=== PATIENT | female | born 1985 | race Caucasian/White ===

== ENCOUNTER 2024-09-06 00:30 | Day surgery (SDC) | payer OTHER, SELFPAY ==
[2024-08-30 10:41] VITALS: BMI 23.0
--- NOTE | 2024-08-30 10:49 | PC.NURSE ---
Report to the Outpatient Waiting Room, entrance under the green pavilion located off [facility], at time _0600_ on date _[phone]_. Planned Procedure Time: _0730_.? Time changes happen often and if your time is changed the preop area will call you the afternoon before. - You and your visitor will be asked to self-screen and do not enter if you have any COVID symptoms. Please call surgeon if you need to reschedule. - A mask is optional within the hospital at this time. Patients may have clear liquids (water, carbonated beverages, clear teas, apple juice) until 3 hours prior to surgery with a maximum of 20 ounces. - No food from midnight until time of surgery and no smoking, or chewing tobacco (or any form of nicotine). No chewing gum, candy or mints. Take only the following medications with a SIP of water on the morning of surgery: ___None____ DO NOT STOP ANY OF YOUR OTHER PRESCRIPTION MEDICATIONS PRIOR TO SURGERY EXCEPT THE FOLLOWING Hold all vitamins and supplements for 3 days per anesthesiologist. Medications to discontinue per physician Date to take last dose Please no make-up, nail yakut, hairspray, perfume, deodorant, or body powder the day of surgery.? No jewelry (including any body piercings) or valuables the day of surgery, leave them at home.? Please take a shower or bath the night before, or the morning of, surgery with an antibacterial soap.? Wear comfortable, loose fitting clothing.? - Jewelry must be removed prior to entering the operating room.? Rings and piercings that are not removed may be cut off. - The hospital will not accept responsibility for valuables.? - Please leave all valuables, including medications, at home the day of surgery. If you are going home after surgery, a licensed distribution driver must drive you home.? - NO public transportation without another adult if you receive anesthesia. - We recommend that an adult stay with you for 24 hours following discharge. - We also recommend that you do not drive, make important decision, drink alcoholic beverages, or take any drugs that were not prescribed by your health care provider for at least 24 hours after your discharge time. Follow any additional instructions given to you from your surgeon. Telephone instructions given to __Erin___and asked if any additional questions and then verbalized understanding. Patient advised to call surgeon office or pre surgery nurse liaison [phone] if any additional questions.
[2024-09-06] VITALS (10 sets, daily range): BP systolic 95–111; BP diastolic 45–70; PULSE 71–94; RESP 12–20; TEMP 36.6–36.7; O2SAT 99–100; BMI 24.4
--- OUTSIDE RECORDS SUMMARY | 2024-09-06 00:32 | XMS_ITS | Referral Summary ---
Author Organization [facility] Medical Office Building B Address [address] [place] [address] Care Team Providers Care Die Filer Name Role Phone Mary De Oliveira HAND SANDER Primary Care Provider [phone] Encounters Date Type Department Care Team Description 08/13/2024 9:30 AM CDT Office Visit [address] [address] Mary De Oliveira NP BMI 23.0-23.9, adult (Primary Dx); Positive VIGNESH (antinuclear antibody) 07/18/[address] [address] Mary De Oliveira NP Med Refill JANA from Last 3 Months Allergies No known active allergies Medications meloxicam (MOBIC) 15 mg tablet Take 1 tablet (15 mg total) by mouth daily with breakfast Take 1 daily with food 30 tablet 4 Active semaglutide (Wegovy) 0.25 mg/0.5 mL auto-injectorIn dications:BMI 23.0-23.9, adult Inject 0.25 mg under the skin every 7 days 3 mL 2 5 Active semaglutide (Wegovy) 0.25 mg/0.5 mL auto-injectorIn dications:Overw eight (BMI 25.0-29.9) INJECT 0.25 MG UNDER THE SKIN EVERY 7 DAYS. 2 mL 5 08/14/19 25 Discontinu ed(Reorder ) Active Problems Problem Noted Date Diagnosed Date Overweight (BMI 25.0-29.9) 04/12/2024 Assessment & Plan (08/13/2024 10:15 AM CDT): Improving w/ low dose wegovy w/ noted early satiety, less snacking amongst Interim 10 lb or 6.9% wt loss/4 months w/ subsequent less polyarthralgia, irritability as well. Would like to cont with use w/ wt loss goal of 128-130slbs (hopeful 5lbs more loss) -amendable given cnt higher protein diet & strength training regimen Agreeable cnt w/ maintenance w/ gradual dosage extension to 8-10 days as tolerable Hx HLD- to consider GLP-1 metabolic benefits towards wt loss, CVD risk reduction Aware of reportable concerns warranting update RTC 3 months Assessment & Plan (04/12/2024 3:13 PM RETAIL STORE ASSISTANT): Marginal wt increase w/ optimized lifestyle habits Pertinent labs UTD & WNL w/o reported features of other etiologies to c/w mild sustained wt gain Not entirely certain of desire to take any RX for wt loss latoya not joint terminal attack controller but more as a boost to just metabolism given optimized lifestyle habits, lack of other etiologies c/w marginal 5-10% body mass retention Long discussion w/ her regarding RX therapies specific to her PMHx, goals, barriers, etc Defer use of compound GLP1 discussing concerns w/ inconsistent dosages, S/Es though agreeable to trial low dose wegovy to update if covered and insurance alternatives arrange f/u Update in the week Urticaria due to heat 10/30/2023 Assessment & Plan (10/30/2023 2:22 PM CDT): Recurrent diffuse w/ heat exposure ongoing for yrs mostly indured (?SLE); uncertain underlining etiology explain Successfully suppressed w/ daily antihsitamine-cnt as prior along with avoidance Referral commercial appraiser eval any mast cell or Ig etiology explain Rheum referral pending for rheum systemic etiology given + vignesh hx Intermittent palpitations 10/28/2022 Assessment & Plan (10/30/2023 1:51 PM CDT): Remains modestly asymptomatic/infreq since prior OV Update w/ any regressive sxs Assessment & Plan (10/28/2022 3:13 PM CDT): Fleeting, episodic palpations of recent wks; unknown etiology Exam benign, reassuring- deferred EKG Update pertinent labs to rule out anemia, thyroid disease or electrolyte related etiology Counseled of common triggers to avoid, preventatives, red flags to report via education handout Low threshold to consider Holter or TTE if labs normal, sx persist amongst avoidance efforts Udpate w/ labs & in the month on overall status Contact with and (suspected) exposure to rabies 12/28/2021 Raynaud's disease 10/28/2021 Assessment & Plan (10/30/2023 1:50 PM CDT): Clinically asymptomatic, infreq Prior dx in Raynaud's 2019-atypical presentation vasospasms(+ VIGNESH suspecting possible cSS- fu) per serology Continue trigger avoidance in the interim Assessment & Plan (10/28/2021 3:14 PM CDT): Hx clinically diagnosed Raynaud's 2019-atypical presentation basal spasms Recent labs + VIGNESH suspecting possible cSS- further serology to rule out systemic inflammatory etiology Continue trigger avoidance in the interim Positive VIGNESH (antinuclear antibody) 10/28/2021 Assessment & Plan (10/30/2023 2:16 PM CDT): Prior + VIGNESH in early (titer 1:80 speckled) w/ unrevealing rheum panel oct thought to be possibly raynaud's related Mention urticaria atypical of SLE etiology but to consider uncertain of utility repeat rheum testing-comfortable deferring until connected w/ specialist Rheum referral pending- reisntating today to arrange OV & discuss repeat testing further Assessment & Plan (10/28/2022 3:16 PM CDT): Uncertain etiology, poss Raynaud's dx related Hx prior + VIGNESH in early speckled 1:80 Repeat 11/04 rheum panel unrevealing Exam benign w/o subjective mention of arthralgias, connective tissue dx explain Fleeting palpitations seemingly unrelated Though Raynaud's remains well controlled, would feel reassured if connecting with nursery attendant for second opinion Will connect with nursery attendant in upcoming mos and discuss further Assessment & Plan (10/28/2021 3:16 PM CDT): Serial + VIGNESH 1:16 (speckled) in 2019 & 04/2021 Clinical exam benign; no remarkable subjective mention of arthralgia, rashes, CP complaints Surrounding testing for further diagnosis, evaluation Referral to [facility] rheum pending labs Update in the week Ocular migraine 10/28/2021 Assessment & Plan (10/30/2023 1:46 PM CDT): Remains infreq since last PHE Cnt supportive care preventative measures, OTC abortive therapies Update w/ increase frequency Assessment & Plan (10/28/2022 3:17 PM CDT): Manageable over the last year;1 episode/year Cnt w/ preventative maintenance modestly through supportives Update w/ increase occurrence, progression Assessment & Plan (10/28/2021 2:11 PM CDT): Hx ocular migraines. Prior seen by neurology Sparing episodes last year-2 at most. Triggered by dehydration, fasting, high intensity/HIIT exercises Will cont w/ avoidance IUD (intrauterine device) in place 10/28/2021 Resolved Problems Problem Noted Date Diagnosed Date Resolved Date Need for Tdap vaccination 10/30/2023 Post concussion syndrome 03/02/202308/2023 Assessment & Plan (03/02/2023 3:30 PM RETAIL STORE ASSISTANT): Exam c/w mild concussion d/t mechanical or contrecoup TBI Various reported sxs align with TBI, neurocog intact w/o direct injury or overt findings per exam-defer neuroimaging tentative to self resolution with supportive care over next few weeks Counseled of condition including typical timeframe to expect resolution, supportive care & p.r.n. 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 2023 Assessment & Plan (10/30/2023 2:38 PM CDT): Chronic, atraumatic & resurfacing months after receiving steroid injection No distal neuropathy reported or noted on exam Baseline xray today r/o avulsion fx, significant OA or spurring Referral to hand specialist for further evaluation Counseled of bracing, supportive care measures towards acute analgesic relief, bracing, activity modifications, HEP interim Assessment & Plan (10/28/2022 3:18 PM CDT): Modestly improving with dry needling, manager medicare marketing Counseled of epicondylitis exercises, bracing, topical analgesics expectations in overall resolution or reportable symptoms Update with persistence to consider need for EMG, ortho referral RTC p.r.n. Annual physical exam 10/28/2021 024 Assessment & Plan (10/30/2023 9:52 AM CDT): Annual physical exam with wellness labs ordered today in clinic. Discussed recommended vaccinations per current guidelines- contraindications, concerns regarding vaccinations reviewed and/or updated in EMR to revisit status next CPE if overdue. Further follow-up pending results of labs. RTC in 1 year for next annual exam or in the interim prn. Assessment & Plan (10/28/2022 1:43 PM CDT): Annual physical exam with wellness labs ordered today in clinic. Discussed recommended vaccinations per current guidelines- contraindications, concerns regarding vaccinations reviewed and/or updated in EMR to revisit status next CPE if overdue. Further follow-up pending results of labs. RTC in 1 year for next annual exam or in the interim prn. Assessment & Plan (10/28/2021 2:17 PM CDT): Annual physical exam with wellness labs ordered today in clinic. UTD on all vaccinations aside per guidelines- encouraged new bivalent CV19 booster- update once received. Further follow-up pending results of labs. RTC in 1 year for next annual exam or in the interim prn. Chronic pain of left knee 10/28/2021 Assessment & Plan (10/30/2023 1:48 PM CDT): Chronic, ongoing S/p L knee closed manipulation last week after prior surgical repair in june hopeful this will yield more pain relief sustained from surgery Formal PT following recovery as well Cnt recommendations per ortho Followed by orthoDr.Stahle Assessment & Plan (10/28/2021 3:17 PM CDT): Chronic, progressive Hx of traumatic ligament injury w/ subsequent repairs, revisions & pain progressing as of recent. Seeing ortho, receiving ESTEVEZ injections. Recent xray noted mild OA, little to no cartilage. Followed by Dr.Stahle darren (spontaneous vaginal delivery) 03/17/2015 2023 Immunizations Immunization Administration Dates Next Due DTP 10/05/1990, 1,07/12/1985,04/09,01/30/1985 Hep B, Adolescent or Pediatric 04/05/1999,1998,08/24/1998 Influenza, Quadrivalent, Jami l Culture-based MDCK, Preservative Free, Antibiotic Free, Intramuscular 11/19/2019,11/12/2017 Influenza, Quadrivalent, Spl it, Preservative Free, Intramuscular 11/26/2020 Influenza, Trivalent, IM (MDV) 12/15/2014 MMR 10/05/1990,06/06/1986 Meningococcal MCV4P (Menactra) 12/08/2008 OPV 10/05/1990, 9,07/12/1985,04/09,01/31/1985 Rabies Immune Globulin 12/28/2021 Rabies Vaccine 01/11/2022, 2,12/31/2021,12/28 Td, adsorbed 09/13/1995 Tdap 10/30/2023,09/13/2012 Social History Tobacco Use Types Packs/Day Years Used Date Smoking Tobacco: Never Passive Smoke Exposure: Never Smokeless Tobacco: Never Tobacco Cessation:Counseling Given: Not Answered AUDIT-C Answer Date Recorded Q1: How often do you have a drink containing alc ohol? 2-3 times a week 2023 Average Number of Drinks Not on file 024 Frequency of Binge Drinking Not on file 08/2023 PHQ-2 Answer Date Recorded PHQ-2 Total Score (If total score is 3 or more points, staff should administer the PHQ-9) 0 10/30/2023 Comments Unknown Sex and Gender Information Value Date Recorded Sex Assigned at Not on file Legal Sex Female 8:05 PM RETAIL STORE ASSISTANT Gender Identity Female 05/06/2021 2:43 PM CDT Sexual Orientation Not on file Last Filed Vital Signs Vital Sign Reading Time Taken Comments Blood Pressure 124/76 08/13/2024 9:33 AM CDT Pulse 76 08/13/2024 9:33 AM CDT Temperature 36.6 C (97.9 F) 2023 10:15 AM RETAIL STORE ASSISTANT Respiratory Rate 16 01/11/2022 4:10 PM RETAIL STORE ASSISTANT Oxygen Saturation 99% 08/13/2024 9:33 AM CDT Inhaled Oxygen Concentration - - Weight 60.8 kg (134 lb) 08/13/2024 9:33 AM CDT Height 160 cm (5' 3) 08/13/2024 9:33 AM CDT Body Mass Index 23.74 08/13/2024 9:33 AM CDT Plan of Treatment Not on file Procedures Procedure Name Priority Date/Time Associated Diagnosis Comments HEPATITIS C ANTIBODY Routine 11/02/2023 9:11 AM CDT Encounter for hepatitis C screening test for low risk patient from Last 3 Months or Most Recently Relevant to Health Maintenance Results * Hepatitis C antibody Blood (11/02/2023 9:11 AM CDT) Hep C Ab NON-REACTI VE NON-REACT JUAN ALBERTO [facility] Comment: HCV antibody was non-reactive. There is no laboratory evidence of HCV infection. In most cases, no further action is required. However, if recent HCV exposure is suspected, a test for HCV RNA (test code 08496) is suggested. For additional information please refer to http://education.[employer].[facility]/faq/XOT59r7 (This link is being provided for informational/ educational purposes only.) Blood 11/02/2023 9:11 AM CDT 11/02/2023 9:11 AM CDT Narrative [facility] - 11/04/2023 12:11 AM CDT FASTING:NO FASTING: NO Mary De Oliveira NP LAB MICROBIOLOGY - GENERAL O RDERABLES Final Result [facility] [address] [place] [address] from Last 3 Months or Most Recently Relevant to Health Maintenance Insurance [facility] PPO [facility] PPO Care Teams Die Filer Relationship Specialty Start Date End Date Mary De Oliveira NP [facility] [address] Marta SANDOVAL [address] [place] [id number] PCP - General Internal Medicine 10/28/21
--- OUTSIDE RECORDS SUMMARY | 2024-09-06 00:32 | XMS_ITS | Clinical Summary ---
Author Organization [facility] Medical Office Building B Address [address] [place] [address] Care Team Providers Care Brilliandeer Lopper Name Role Phone Mary De Oliveira NP Primary Care Provider [phone] Allergies No known active allergies Medications meloxicam [...] months Assessment & Plan (04/12/2024 3:13 PM DIRECTOR OF MARKET ANALYSIS): Marginal wt increase w/ optimized lifestyle habits Pertinent labs UTD & WNL w/o reported features of other etiologies to c/w mild sustained wt gain Not entirely certain of desire to take any RX for wt loss latoya not halfway but more as a boost to just [...] antihsitamine-cnt as prior along with avoidance Referral drawbench operator helper eval any mast cell or Ig etiology explain Rheum referral pending for rheum systemic etiology given + margot hx Intermittent palpitations 10/28/2022 Assessment & Plan [...] Prior dx in Raynaud's 2019-atypical presentation vasospasms(+ MARGOT suspecting possible cSS- fu) per serology Continue trigger avoidance in the interim Assessment & Plan (10/28/2021 3:14 PM CDT): Hx clinically diagnosed Raynaud's 2019-atypical presentation basal spasms Recent labs + MARGOT suspecting possible cSS- further serology to rule out systemic inflammatory etiology Continue trigger avoidance in the interim Positive MARGOT (antinuclear antibody) 10/28/2021 Assessment & Plan (10/30/2023 2:16 PM CDT): Prior + MARGOT in early (titer 1:80 speckled) w/ unrevealing [...] poss Raynaud's dx related Hx prior + MARGOT in speckled 1:80 Repeat 11/04 rheum panel unrevealing Exam benign w/o subjective mention of arthralgias, connective tissue dx explain Fleeting palpitations seemingly unrelated Though Raynaud's remains well controlled, would feel reassured if connecting with batch or continuous still operator for second opinion Will connect with batch or continuous still operator in upcoming mos and discuss further Assessment & Plan (10/28/2021 3:16 PM CDT): Serial + MARGOT 1:16 (speckled) in 2019 & 04/2021 Clinical exam benign; no remarkable subjective mention of arthralgia, rashes, CP complaints Surrounding testing for further diagnosis, evaluation Referral to [facility] rheum pending labs Update in the week [...] 03/02/202308/2023 Assessment & Plan (03/02/2023 3:30 PM DIRECTOR OF MARKET ANALYSIS): Exam c/w mild concussion d/t mechanical or [...] PM CDT): Modestly improving with dry needling, child care nurse Counseled of epicondylitis exercises, bracing, topical analgesics [...] OA, little to no cartilage. Followed by ortho, Dr.Stahle LANE (spontaneous vaginal delivery) 03/17/2015 2023 Encounters Date Type Department Care Team Description 08/13/2024 9:30 AM CDT Office Visit [address] [address] Mary De Oliveira, MEDICAL BILLING REPRESENTATIVE BMI 23.0-23.9, adult (Primary Dx); Positive MARGOT (antinuclear antibody) 07/18/[address] [address] Mary De Oliveira, MEDICAL BILLING REPRESENTATIVE Med Refill JANA from Last 3 Months Immunizations Immunization Administration Dates Next Due DTP 10/05/1990, 1,07/12/1985,04/09,01/30/1985 Hep B, Adolescent or Pediatric 04/05/1999,1998,08/24/1998 Influenza, Quadrivalent, Jami l Culture-based MDCK, Preservative Free, Antibiotic Free, Intramuscular 11/19/2019,11/12/2017 Influenza, Quadrivalent, Spl it, Preservative Free, Intramuscular 11/26/2020 Influenza, Trivalent, IM (MDV) 12/15/2014 MMR 10/05/1990,06/06/1986 Meningococcal MCV4P (Menactra) 12/08/2008 OPV 10/05/1990, 9,07/12/1985,04/09,01/31/1985 Rabies Immune Globulin 12/28/2021 Rabies Vaccine 01/11/2022, 2,12/31/2021,12/28 Td, adsorbed 09/13/1995 Tdap 10/30/2023,09/13/2012 Surgical History Surgery Date Site/Laterality Comments KNEE ARTHROSCOPY W/ LATERAL RELEASE 2004, , , BREAST SURGERY August 2017 LASIK August 2020 Medical History Medical History Date Comments Migraines 2019 Autoimmune disease 2020 Family History Medical History Relation Name Comments Hypertension Father Loco Fowler Heart attack Father's Brother 1 Patrick Mathewsron Heart attack Father's Brother 2 Darin Mathewsron Breast cancer Father's Sister 1 Lindsey Wipperman Cancer Father's Sister 1 Lindsey Wipperman Cancer Father's Sister 2 Danielle Abhay Squamous cell carcinoma Father's Sister 2 Danielle Abhay Heart attack Father's Sister 3 Elizabeth Snell Ellis Heart disease Father's Sister 3 Elizabeth Snell Ellis Cancer Paternal Grandfather Carlito Fowler Lung cancer Paternal Grandfather Carlito Fowler Stroke Paternal Grandmother Alida Fowler Colon cancer Neg Hx Diabetes Neg Hx Diabetes type II Neg Hx Ovarian cancer Neg Hx Relation Name Status Comments Father Loco Fowler Father's Brother 1 Patrick Mathewsron Father's Brother 2 Darin Malcolm Father's Sister 1 Lindsey Barcenaspperman Father's Sister 2 Danielle Abhay Father's Sister 3 Elizabeth Ellis Paternal Grandfather Carlito Fowler Paternal Grandmother Alida Fowler Social History Tobacco Use Types Packs/Day Years [...] on file Legal Sex Female 8:05 PM DIRECTOR OF MARKET ANALYSIS Gender Identity Female 05/06/2021 2:43 PM CDT Sexual Orientation Not on file Obstetrics History Para Term AB IAB SAB Ectopic Multiple Livin g Live Births 2 2 1 1 2 2 Date Outcome GA Total Labor Labor/2nd/3rd Weight Sex Type Anes PTL Amber A1 A5 Name Clin 013 36w 0d 10h 15m/2h 06m/ M Livin g WALDR ON,NADINE Y1ERI N Delivery Location[facility] 016 Term 39w 3d 5h 05m 4h 00m/0h 58m/0h 07m 3.062 kg (6 lb 12 oz) F Vag-S pont Epidur al Cliff g 8 9 Yasmany Archer MD Complications:None Delivery Location:[facility] Last Filed Vital Signs Vital Sign Reading Time Taken Comments Blood Pressure 124/76 08/13/2024 9:33 AM CDT Pulse 76 08/13/2024 9:33 AM CDT Temperature 36.6 C (97.9 F) 2023 10:15 AM DIRECTOR OF MARKET ANALYSIS Respiratory Rate 16 01/11/2022 4:10 PM DIRECTOR OF MARKET ANALYSIS Oxygen Saturation 99% 08/13/2024 9:33 AM CDT Inhaled Oxygen Concentration - - Weight 60.8 kg (134 lb) 08/13/2024 9:33 AM CDT Height 160 cm (5' 3) 08/13/2024 9:33 AM CDT Body Mass Index 23.74 08/13/2024 9:33 AM CDT Plan of Treatment Health Maintenance Due Date Last Done Comments Cervical Cancer Screening 1984 Varicella Vaccines (1 of 2 - 13+ 2-dose series) 1997 HPV Vaccines (1 - 3-dose SCDM series) 12/22/2011 Covid-19 Vaccine ( season) 2023 05/06/2020, 04/15/2020 Influenza Vaccine (#1) 2024 , 11/19/2019, 11/12/2017, Additional history exists Depression Screening 10/29/2024 10/30/2023, 10/28/2022, 10/28/2021 Regular Well Visit/Exam 18-64 10/29/2024 10/30/2023, 10/28/2022, 10/28/2021 DTaP/Tdap/Td Vaccine (8 - Td or Tdap) 10/29/2033 10/30/2023, 09/13/2012, 09/13/1995, Additional history exists Hepatitis B Screening Completed 11/02/2023 , 04/05/1999, 11/02/1998, Additional history exists Hepatitis C Screening Completed 11/02/2023 Pneumococcal vaccine <65 Aged Out No longer eligible based on patient's age to complete this topic Procedures Procedure Name Priority Date/Time Associated Diagnosis Comments HEPATITIS C ANTIBODY Routine 11/02/2023 9:11 AM CDT Encounter for hepatitis C screening test for low risk patient from Last 3 Months or Most Recently Relevant to Health Maintenance Results * Hepatitis C antibody Blood (11/02/2023 9:11 AM CDT) Hep C Ab NON-REACTI VE NON-REACT JUAN ALBERTO [facility] Comment: HCV antibody was non-reactive. There is no laboratory evidence of HCV infection. In most cases, no further action is required. However, if recent HCV exposure is suspected, a test for HCV RNA (test code 92974) is suggested. For additional information please refer to http://education.[employer]/faq/DJK46i4 (This link is being provided for informational/ educational purposes only.) Blood 11/02/2023 9:11 AM CDT 11/02/2023 9:11 AM CDT Narrative [facility] - 11/04/2023 12:11 AM CDT FASTING:NO FASTING: NO Mary De Oliveira NP LAB MICROBIOLOGY - GENERAL O RDERABLES Final Result [facility] [address] [place] [address] from Last 3 Months or Most Recently Relevant to Health Maintenance Insurance [facility] PPO Care Teams Brilliandeer Lopper Relationship Specialty Start Date End Date Mary De Oliveira NP [facility] [address] Marta SANDOVAL [address] [place] [id number] PCP - General Internal Medicine 10/28/21
--- OUTSIDE RECORDS SUMMARY | 2024-09-06 00:32 | XMS_ITS | Clinical Summary ---
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 Gender Identity Not on file Sexual Orientation Not on file Plan of Treatment Health Maintenance Due Date Last Done Comments Hepatitis C Virus (HCV) Screening 1984 TdaP Immunization 1984 Human Papillomavirus (HPV) Immunization (1 - 3-dose series) 12/22/1999 Hepatitis B Immunization (1 of 3 - 19+ 3-dose series) 12/22/2003 Pap Smear 2005 Cervical Cancer Screening (CCS) 2014 HPV/Cotest 2014 SARS-COV-2 Immunization (2023- season) 2023 Influenza Immunization (#1) 10/14/202407/2019, 11/12/2017 Respiratory Syncytial Virus (RSV) Immunization (Adult) (1 - 1-dose 75+ series) 12/22/2059 Meningococcal Immunization (ACWY) Aged Out No longer eligible b ased on patient's age to complete this topic Pneumococcal Immunization Combined Aged Out No longer eligible b ased on patient's age to complete this topic Rotavirus Immunization Aged Out No lo nger eligible based on patient's age to complete this topic
--- OUTSIDE RECORDS SUMMARY | 2024-09-06 00:32 | XMS_ITS | Clinical Summary ---
Author Organization [facility] Address [address] [place] [address] Care Team Providers Care Manager Transit Name Role Phone Angelo Mejia MD Primary Care Provider Allergies No known active allergies Medications multi vitamin/minerals tablet Take 1 tablet by mouth daily. Active Ascorbic Acid (VITAMIN C) 250 MG Chew Tab Chew 1 tablet by mouth 3 (three) times daily. Active Immunizations Immunization Administration Dates Next Due PFIZER COVID-19 (ORIGINAL FO RMULATION, PURPLE CAP) mRNA, LNP-S, PF, 30 MCG/0.3 ML DOSE 05/06/2020,04/15/2020 Family History Medical History Relation Comments Hypertension Father None Mother Relation Status Comments Father Alive Mother Alive Social History Tobacco Use Types Packs/Day Years Used Date Smoking Tobacco: Never Smokeless Tobacco: Never Alcohol Use Standard Drinks/Week Comments Yes 0 (1 standard drink = 0.6 oz pur e alcohol) SOCIALLY Comments No Sex and Gender Information Value Date Recorded Sex Assigned at Not on file Legal Sex Female 1:58 PM CDT Gender Identity Not on file Sexual Orientation Not on file Last Filed Vital Signs Vital Sign Reading Time Taken Comments Blood Pressure 108/60 01/13/2021 3: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 Pulse 78 01/13/2021 3: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 Temperature 36.7 C (98 F) 01/13/2021 3: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 Respiratory Rate 20 01/13/2021 3: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 Oxygen Saturation 100% 01/13/2021 3: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 Inhaled Oxygen Concentration - - Weight 62.1 kg (137 lb) 01/13/2021 3: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 Height 160 cm (5' 3) 01/13/2021 3: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 Body Mass Index 24.27 01/13/2021 3: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 Plan of Treatment Health Maintenance Due Date Last Done Comments Annual Physical 12/22/1987 Hepatitis C 2002 Hepatitis B Vaccines (1 of 3 - 19+ 3-dose series) 12/22/2003 HPV Vaccines (1 - 3-dose SCDM series) 12/22/2011 DTaP, Tdap and Td Vaccines (2 - Td or Tdap) 09/13/2022 09/13/2012, 10/05/1990, 03/11/1990, Additional history exists Cervical Cancer Screening Pap Smear (Age 30 to 64) Every 3 Years 06/03/2023 06/02/2020 COVID-19 Vaccine ( season) 2023 05/06/2020, 04/15/2020 Cervical Cancer Screening Pap with HPV Testing (Age 30 to 64) Every 5 Years 06/02/2025 06/02/2020 Cervical Cancer Screening with HPV 06/02/2025 Meningococcal B Vaccine Aged Out No l onger eligible based on patient's age to complete this topic Meningococcal Vaccine Aged Out No zoila fatou eligible based on patient's age to complete this topic Pneumococcal Vaccine: Pediatrics (0 to 5 Years) and At-Risk Patients (6 to 49 Years) Aged Out No longer eligible based on patient's age to complete this topic RSV Immunizations Under 20 Months Aged Out No longer eligible based on patient's age to complete this topic Insurance Care Teams Manager Transit Relationship Specialty Start Date End Date Angelo Mejia MD [address] [address] PCP - General INTERNAL MEDICINE 01/04/19
--- OUTSIDE RECORDS SUMMARY | 2024-09-06 00:32 | XMS_ITS | Continuity of Care Document ---
Author Organization [facility] Address [address] [place] [address] [place] [phone] Phone Care Team Providers Care Auto Parts Salesperson Name Role Phone Valeriy PT, DPT, Angelo Ferrara Unavaila ble Procedures Procedure Date Therapeutic Activities Neuromuscular Re-Ed Therapeutic Exercise Manual Therapy Therapeutic Activities Neuromuscular Re-Ed Therapeutic Exercise Manual Therapy Therapeutic Activities Neuromuscular Re-Ed Manual Therapy Therapeutic Exercise Therapeutic Activities Neuromuscular Re-Ed Therapeutic Exercise Manual Therapy Therapeutic Activities Therapeutic Exercise Neuromuscular Re-Ed Manual Therapy Therapeutic Activities Neuromuscular Re-Ed Therapeutic Exercise Therapeutic Activities Therapeutic Exercise Neuromuscular Re-Ed Therapeutic Activities Therapeutic Exercise Neuromuscular Re-Ed Therapeutic Activities Therapeutic Exercise Manual Therapy Neuromuscular Re-Ed Neuromuscular Re-Ed Therapeutic Activities Therapeutic Exercise Manual Therapy Therapeutic Activities Therapeutic Exercise Manual Therapy PT Evaluation Low Complexity Therapeutic Activities Neuromuscular Re-Ed Therapeutic Exercise Advance Directives Directive Yes / No Effective Date File Name No Information Encounters Encounter Description Practice Location Reason(s) For Visit Diagnoses Date Provider Providers Copied on Encounter [facility] [address], [id number], tel:[phone] [place] No Information Valeriy Stephens. . [facility] [address], [id number], tel:[phone] [place] No Information [place]. . Referring Provider: James Bran, [address] [place] [address], [facility]. tel:[phone] [place] [address], [id number], tel:[phone] [place] No Information [place]. . Referring Provider: James Bran, [address] [place] [address], [place], [address]. tel:[phone], [id number], tel:[phone] [place] No Information Valeriy Stephens. . Referring Provider: James Bran, [address] [place] [address], [place], [address]. tel:[phone], [id number], tel:[phone] [place] No Information Valeriy Stephens. . Referring Provider: James Bran [address] [place] [address], [place], [address]. tel:[phone] [facility], [address] [facility] [address], [place], [place], [id number], [place] tel:[phone] [place] No Information Valeriy Stephens. . Referring Provider: James Bran, [address] [place] [address], [place], [address]. tel:[phone] [facility] [address] [facility] [address], [place], [place], [id number], [place] tel:[phone] [place] No Information [place]. . Referring Provider: aJmes Bran [address] [place] [address], [place], [address]. tel:[phone] [facility], [address] [place] [address], [place], [place], [id number], tel:[phone] [place] No Information Valeriy Stephens. . Referring Provider: James Bran [address] [place] [address], [place], [address]. tel:[phone] [facility] [address] [place] [address], [place], [place], [id number], tel:[phone] [place] No Information [place]. . Referring Provider: James Bran [address] [place] [address], [place], [address]. tel:[phone] [facility] [address], [place], [place], [id number], [place] tel:[phone] [place] No Information Valeriy Stephens. . Referring Provider: James Bran [address] [place] [address], [place], [address]. tel:[phone] [facility], [address] [facility] [address], [place], [place], [id number], [place] tel:[phone] [place] No Information Valeriy Stephens. . Referring Provider: James Bran, [address] [facility] [address], [place], [address]. tel:[phone] [place] [address], [place], [place], [id number], tel:[phone] [place] No Information [place]. . Referring Provider: James Bran, [address] [facility] [address], [place], [address]. tel:[phone], [place], [place], [id number], tel:[phone] [place] No Information Valeriy Stephens. . Referring Provider: James Bran, [address] [facility] [address], [place], [address]. tel:[phone] Family History Family Member Type Diagnosis Age At Onset No Information Payers Payer name Insurance type Covered democrat ID Authorjihan nance(s) [facility] [id number] Social History Type Description Quantity Date Captured Comments Sex Female Smoking Status No Information Chief Complaint And Reason For Visit No Information Reason For Referral Reason For Referral No Information History Of Present Illness Encounter Date Complaint History Of Prese nt Illness No Information Functional Status Date Functional Assessmen t No Information Instructions Date Instruction Additional Infor mation No Information Assessments Type Assessment Date No Information Patient Care Teams Name Effective Dates (start - stop) Status Members No Information
--- OUTSIDE RECORDS SUMMARY | 2024-09-06 00:32 | XMS_ITS | Clinical Summary ---
Author Organization [facility] Address [address] [place] [address] Phone Care Team Providers Care Mitten Stitcher Name Role Phone [facility], External Provider Primary Care Provider U navailable Allergies No known active allergies Medications fluconazole (DIFLUCAN) 150 mg tablet Take 1 Tablet (150 mg) by mouth daily. 2 Tablet 1 02/24/2022 Active Active Problems Problem Noted Date Diagnosed Date 03/17/15, girl 03/17/2015 Resolved Problems Problem Noted Date Diagnosed Date Resolved Date SROM (0011), GBS-, A+ 03/17/20152015 Mastitis, vanc q12, likely home tomorrow 11/03/2012 03/17/2015 , Boy Elaine 09/23/2012 03/17/2015 PROM 11:45, A+, GBS neg 09/22/2012 02/0 03/2015 Immunizations Immunization Administration Dates Next Due (ADACEL/BOOSTRIX)(10 YR UP) TDAP VACCINE, 0.5ML, IM 09/23/2012 Influenza Seasonal Unspecified Formulation IM Family History Medical History Relation Name Comments Healthy Father Healthy Mother Healthy Sister Relation Name Status Comments Father Mother Sister Social History Tobacco Use Types Packs/Day Years Used Date Smoking Tobacco: Never Smokeless Tobacco: Never Alcohol Use Standard Drinks/Week Comments No 0 (1 standard drink = 0.6 oz pur e alcohol) Comments No Sex and Gender Information Value Date Recorded Sex Assigned at Not on file Legal Sex Female 8:57 AM CDT Gender Identity Not on file Sexual Orientation Not on file Occupation Industry Job Start Date Job End Date Not on file Not on file Not on file Not on file Last Filed Vital Signs Vital Sign Reading Time Taken Comments Blood Pressure 110/66 09/16/2021 10:10 AM CDT Pulse 99 03/19/2015 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 Temperature 36.7 C (98 F) 03/19/2015 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 Respiratory Rate 18 03/19/2015 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 Oxygen Saturation 100% 05/04/2013 12:26 PM CDT Inhaled Oxygen Concentration - - Weight 64 kg (141 lb) 09/16/2021 10:10 AM CDT Height 159.4 cm (5' 2.75) 06/02/2020 2:15 PM CD T Body Mass Index 25.18 06/02/2020 2:15 PM CDT Plan of Treatment Health Maintenance Due Date Last Done Comments HPV VACCINES (1 - 3-dose series) 12/22/1999 HEPATITIS B VACCINES (1 of 3 - 19+ 3-dose series) 12/22/2003 DTAP/TDAP/TD VACCINES (2 - Td or Tdap) 09/23/2022 COVID-19 Vaccine (3 - 2023- season) 2023, 04/15/2020 INFLUENZA VACCINE (#1) 2024 12/15/2014 PAP SMEAR 09/16/2024 09/16/2021, 06/02/2020 CERVICAL CANCER SCREENING 09/16/2026 HPV/Cotest (21-29) 09/16/2026 09/16/2021, 06/02/2020 HPV/Cotest (30-65) 09/16/2026 09/16/2021, 06/02/2020 Procedures Procedure Name Priority Date/Time Associated Diagnosis Comments CERV/VAG CYTO AGE BASED SCREEN PAP Routine 09/16/2021 10:40 AM CDT Encounter for gynecological examination without abnormal finding Screening for cervical cancer Special screening examination for human papillomavirus (HPV) from Last 3 Months or Most Recently Relevant to Health Maintenance Results * CERV/VAG CYTO AGE BASED SCREEN PAP (09/16/2021 10:40 AM CDT) COMMENT (PAP): [facility] Comment: This order for age-based cervical cancer and STI screening follows ACOG guidelines(PB 168, 140, MMF826). See individual assays for performing site location. CLINICAL INFORMATION [facility] Comment:Information not prov ided LAST MENSTRUAL PERIOD [facility] Comment:INFORMATION NOT PROV IDED PREV PAP: [facility] [place] Comment:INFORMATION NOT PROV IDED PREV BX: [facility] [place] Comment:INFORMATION NOT PROV IDED SOURCE [facility] [place] Comment:Endocervix ADEQUACY: [facility] [place] Comment: Satisfactory for evaluation. Endocervical/transformation zone component present. Age and/or menstrual status not provided PAP INTERP [facility] Comment:Negative for intraep ithelial lesion or malignancy. COMMENT (PAP TEST) [facility] Comment: This Pap test has been evaluated with computer assisted technology. FRONT END SPECIALIST: Fabby est [facility] Comment: BKA, CT(ASCP) CT screening location: [place] [address] [place] [address] EXPLANATORY NOTE [facility] [place] Comment: EXPLANATORY NOTE: The Pap is a screening test for cervical cancer. It is not a diagnostic test and is subject to false negative and false positive results. It is most reliable when a satisfactory sample, regularly obtained, is submitted with relevant clinical findings and history, and when the Pap result is evaluated along with historic and current clinical information. HPV E6/E7 Not Detected Not Detected [facility] Comment: Methodology: Molasses Feed Mixer-Mediated Amplification This assay detects E6/E7 viral messenger RNA (mRNA) from 14 high-risk HPV types (16,18,31,33,35,39,45,51,52,56,58,59,66,68). Cervical sources are required for HPV testing. If a vaginal source from a patient who has had a total hysterectomy with removal of cervix was submitted, please contact the testing laboratory for alternative testing options. For additional information, please refer to http://education.HITbills/faq/LXO046f6 (This link if provided for information/ educational purposes only.) Test Performed at: [facility] [address] [place] [place] [address] Arvind Redding D.O., MPH SL Genital SW[facility] OF ENDOCERVIX / Unknown 09/16/2021 10:40 AM CDT 09/16/2021 10:27 PM CDT Иван Ramirez MD PATHOLOGY/CYTOLOGY ORD ERABLES Final Result [facility] [phone] [facility] [address] [place] [address] from Last 3 Months or Most Recently Relevant to Health Maintenance Insurance Advance Directives For more information, please contact: [phone] * Full Code (Latest Code Status on File) Date Activated Date Inactivated Comments 03/17/2015 7:58 AM 03/19/2015 1:27 PM * Full Code Date Activated Date Inactivated Comments 03/17/2015 2:53 AM 03/17/2015 7:58 AM * Full Code Date Activated Date Inactivated Comments 12/31/2014 11:19 AM 12/31/2014 3:54 PM * Full Code Date Activated Date Inactivated Comments 09/23/2012 4:14 AM 09/25/2012 10:00 PM * Full Code Date Activated Date Inactivated Comments 09/22/2012 3:36 PM 09/23/2012 4:14 AM Care Teams Mitten Stitcher Relationship Specialty Start Date End Date [facility], External Provider [address] [place] [address] PCP - General 11/03/12
--- NOTE | 2024-09-06 07:02 | P.PNAN_ITS ---
Anes - Initial Pre Proc Eval Procedure: Operation Date: 09/06/24 07:30 Proposed Procedures p Bilateral Breast Implant Exchange - Zachery Gray MD Date/Time: 09/06/24 07:02 Surgeon: Zachery Gray MD Pre Op Diagnosis: Hx of Breast Aug Patient Data Age: 38 Gender: F Height: 1.6 m Weight: 59 kg Allergies Allergy/AdvReac Type Severity Reaction Status Date / Time No Known Allergies Allergy Verified 09/06/24 07:04 Home Medications ?Medication ?Instructions ?Recorded ?Confirmed ?Type No Home Medications 08/30/24 08/30/24 History Patient hx anesthesia problems: post op nausea/vomiting Family hx anesthesia problems: none Results Review: All pre-operative results and documents have been reviewed as part of the pre- operative evaluation. PMFSH Family History Family History Grandparent Hypertension Social History Social History Smoking status: Never smoker Alcohol intake: current Drinks per week: 5 Living arrangements: with family Spiritual care concerns: No Anes - Eval Final PreProcedure Day of Procedure 09/06/24 07:02 Patient weight: normal Heart: regular rate and rhythm Lungs: clear to auscultation Airway: Mallampati scale class II Neurological: alert and oriented Last oral intake: >/= 8 hours ASA classification: II Emergent: no Anesthetic plan: proceed Anesthesia type and monitoring: general LMA and standard monitoring Results Review: All pre-operative results and documents have been reviewed as part of the pre- operative evaluation. Informed Consent: The patient's anesthetic plan and its attendant risks and benefits were discussed with the patient/family/POA. Questions were solicited and answers provided to the satisfaction of the patient/family/POA.
[2024-09-06] MEDS: LACTATED RINGERS 1,000 ML 30 ML IV CONT ×2 (07:10→09:10)
[2024-09-06] MEDS: TRANEXAMIC ACID 1,000MG/ISO100 1,000 MG/100 ML BAG 200 MG IVPB (07:10)
[2024-09-06 07:11] LABS: BEDSIDEPREGUCG Negative (Negative)
--- NOTE | 2024-09-06 07:15 | WPDHPUPDATE1 ---
History and Physical Update Update Date/Time: 09/06/24 07:15 History and Physical has been reviewed, including an updated exam of the patient. There are NO changes in the patient's condition. Risks, benefits, and alternatives have been discussed and questions answered. Patient agrees to proceed with procedure.
--- NOTE | 2024-09-06 07:17 | W.PM.PROC2 ---
Procedure Note - Detailed Date of Procedure 09/06/24 Pre-op Diagnosis Hx of Breast Aug Post-op Diagnosis Same Procedure Performed Bilateral breast implant exchange Surgeon Zachery Gray MD Anesthesia General Findings Previous implants: Right: SRL-230. Intact. No worrisome features. Capsule thin / soft Left: SRL-230. Ruptured (minimal gross spillage of silicone). No worrisome features (except rupture). Capsule thin / soft. New implants: Bilateral Natrelle Inspira Cohesive 265cc Right: REF# [id number] SN [id number] Left: REF# [id number] SN [id number] Description of Procedure Preoperatively the risks, benefits, alternatives were discussed in extensive detail. I wanted to be very realistic about the risks involved as well as expectations. I was clear about how we could actually make her worse. Answered all questions to satisfaction. Voiced a clear understanding. Consent obtained. She was taken the operating room placed supine on the operating room table. Anesthesia provided by anesthesiology and prepped and draped in a standard sterile fashion. Surgical time-out was taken. 1% lidocaine and 0.25% Marcaine with epinephrine was used to provide a field block. Tegaderm nipple lucero were placed. Fifteen blade used to excise the previous IMF scars. Dissection was continued down until the capsules were identified and entered. Findings as above. Implants removed (left using catheter tip syringes to ensure complete silicone removal). I then copiously irrigated with 3 L of saline solution on TUR tubing. Verified strict hemostasis. I then irrigated with Betadine containing solution. Using a no-touch technique and a Benavides funnel the implant was introduced into the pocket. This was closed with 2-0 PDS followed by 3-0 Monocryl and a running subcuticular 4-0 Monocryl followed by tissue glue. Dressings were placed. She was woken taken to the PACU without difficulty. All instrument sponge counts were correct at the end of the case. Estimated Blood Loss 20 Drains No Packing No Pathology None sent Complications No immediate complications Condition Stable Disposition PACU
[2024-09-06] MEDS: BUPivacaine HCL 0.25% PF 10 ML VIAL 30 ML INFILTRATE (07:28)
[2024-09-06] MEDS: LIDO 1%/EPINEPHRINE 1:100,000 20 ML VIAL 30 ML INFILTRATE (07:28)
[2024-09-06] MEDS: ceFAZolin 2 GM in SODIUM CHLORIDE 0.9% IV 50 ML 100 ML IVPB (07:35)
[2024-09-06] MEDS: NACL 0.9% IRRIG POUR BOTTLE 900 ML, GENTAMICIN SULFATE INJ 160 MG, ceFAZolin 2 GM, POVI... IRRIGATION (07:59)
[2024-09-06] MEDS: fentaNYL CITRATE INJ (*CRX) 100 MCG/2 ML VIAL 25 MCG IV PUSH ×4 (09:00→09:20)
[2024-09-06] MEDS: oxyCODONE HCL (*CRX) 5 MG TAB IR PO (09:49)
== END 2024-09-06 10:30 | disposition home or self-care (01) ==
PROVIDERS: Visit Provider Surgery Plastic and Reconstructive Surgery
PROC: (CPT 19330; principal; 2024-09-06 07:30)
DX: T85.41XA Breakdown (mechanical) of breast prosthesis and implant, initial encounter (principal); Y83.8 Other surgical procedures as the cause of abnormal reaction of the patient, or of later complication, without mention of misadventure at the time of the procedure
CPT/HCPCS: 19330; 19328; 19325; J0690; A9270; J1100; J1171; J1580; J2003; J2004; J2250; J2405; J2704; J3010; J7120